=== PATIENT | male | born 1975 | race African-American/Black ===

== ENCOUNTER 2017-06-28 13:21 | Emergency (ER) | payer OTHER ==
[2017-06-28] MEDS ORDERED: IV NORMAL SALINE 1000ML BAG 1,000 ML IV ONE (13:30)
[2017-06-28] MEDS ORDERED: MORPHINE SULFATE 10 MG/ML VIAL. IV ONE (13:30)
[2017-06-28] MEDS ORDERED: ONDANSETRON PF 4 MG/2 ML VIAL. IV ONE (13:30)
[2017-06-28 13:55] LABS: BASO % 1 % (0-3); EOS % 2 % (0-3); HEMATOCRIT 40.1 % (39.0-53.0); HEMOGLOBIN 13.6 g/dL (13.0-17.5); LYMPH # 2.9 x10^3/uL (1.0-4.8); LYMPH % 61 % (24-48); MEAN CORPUSCULAR HEMOGLOBIN 27 pg (25-35); MEAN CORPUSCULAR HGB CONC 34 g/dL (31-37); MEAN CORPUSCULAR VOLUME 81 fL (79-100); MONO % 6 % (0-9); NEUT % 31 % (31-73); PLATELET COUNT 257 x10^3/uL (140-400); RED BLOOD COUNT 4.96 x10^6/uL (4.30-5.70); RED CELL DISTRIBUTION WIDTH 14.5 % (11.5-14.5); WHITE BLOOD COUNT 4.7 x10^3/uL (4.0-11.0)
[2017-06-28] MEDS ORDERED: IOHEXOL 300 MG/ML 75 ML VIAL IV ONE (14:00)
[2017-06-28] MEDS ORDERED: CONTRAST GIVEN MC PRN (14:00)
[2017-06-28 14:07] LABS: CALCIUM 8.9 mg/dL (8.5-10.1); CREATININE 1.1 mg/dL (0.7-1.3); GFR 88.8; POTASSIUM 3.3 mmol/L (3.5-5.1)
[2017-06-28 14:12] LABS: ALBUMIN 4.1 g/dL (3.4-5.0); ALBUMIN/GLOBULIN RATIO 1.1 (1.0-1.7); TOTAL BILIRUBIN 0.2 mg/dL (0.2-1.0); TOTAL PROTEIN 7.9 g/dL (6.4-8.2)
--- NOTE | 2017-06-28 14:29 | EKG ---
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
[2017-06-28] MEDS ORDERED: DIAZ5TAB PO (14:58)
[2017-06-28] MEDS ORDERED: HYDR-971 PO (14:58)
[2017-06-28] MEDS ORDERED: KETOROLAC TROMETHAMINE 30 MG/ML INJ. IV ONE (15:00)
[2017-06-28] MEDS ORDERED: diazePAM 5 MG TABLET PO ONE (15:00)
[2017-06-28 15:04] LABS: % BASOS 1 % (0-3); % EOS 1 % (0-5)
[2017-06-28 15:06] LABS: PLT ESTIMATE ADEQUATE (ADEQUATE); TOXIC GRANULATION PRESENT
[2017-06-28 15:19] VITALS: BP 134/87
== END 2017-06-28 15:30 | disposition home or self-care (01) ==
LOC: ER 13:21
DX: S16.1XXA Strain of muscle, fascia and tendon at neck level, initial encounter (principal); S09.90XA Unspecified injury of head, initial encounter; R10.84 Generalized abdominal pain; R07.89 Other chest pain; M54.5 Low back pain; I10 Essential (primary) hypertension; V46.4XXA Person boarding or alighting a car injured in collision with other nonmotor vehicle, initial encounter; Y93.89 Activity, other specified; Y99.8 Other external cause status; Y92.488 Other paved roadways as the place of occurrence of the external cause
CPT/HCPCS: 36415; 70450; 71260; 72125; 74177; 80053; 83690; 84484; 85007; 85025; 93005; 96361; 96374; 96375; 99285; J1885; J2270; J2405; J7030; Q9967

== ENCOUNTER → 2019-03-07 | Outpatient (CLI) | payer OTHER ==
[~2019-03-07] MED LIST: DIAZ5TAB PO; HYDR-3164 PO; PRED50TA PO
--- NOTE | 2019-03-07 15:34 | EKG ---
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
[2019-03-07 16:13] LABS: CALCIUM 9.1 mg/dL (8.5-10.1); CREATININE 1.1 mg/dL (0.7-1.3); POTASSIUM 3.4 mmol/L (3.5-5.1)
== END | disposition home or self-care (01) ==
LOC: LAB 15:10
PROVIDERS: ATTEND Anesthesiology
DX: I10 Essential (primary) hypertension (principal)
CPT/HCPCS: 36415; 80048; 93005

== ENCOUNTER 2019-04-18 16:03 | Emergency (ER) | payer OTHER ==
[~2019-04-18] VITALS: Ht 182.9 cm; Wt 108.0 kg
[~2019-04-18 16:03] MED LIST changes: -PRED50TA PO
--- NOTE | 2019-04-18 16:43 | PHYS DOC ---
Past Medical History Past Medical History: Hypertension Past Surgical History: No Surgical History Alcohol Use: Occasionally Drug Use: None Adult General Chief Complaint Chief Complaint: ALLERGIC REACTION HPI HPI Patient is a 43 year old male with history of hypertension who presents to the ED today complaining of an allergic reaction. Patient states he had a handful of almonds before coming to the ED. He states he developed a rash on the right upper extremity and felt the food was coming back to his throat. He states he almost vomited. He states symptoms have improved after getting to the ED. Patient denies any difficulty breathing, denies any throat or tongue swelling. Review of Systems Review of Systems Constitutional: Denies fever or chills [] Eyes: Denies change in visual acuity, redness, or eye pain [] HENT: Denies nasal congestion or sore throat [] Respiratory: Denies cough or shortness of breath [] Cardiovascular: No additional information not addressed in HPI [] GI: Denies abdominal pain, nausea, vomiting, bloody stools or diarrhea [] : Denies dysuria or hematuria [] Musculoskeletal: Denies back pain or joint pain [] Integument: Reports allergic reaction rash to the right upper extremity Neurologic: Denies headache, focal weakness or sensory changes [] All other systems were reviewed and found to be within normal limits, except as documented in this note. Current Medications Current Medications Current Medications Medications (Trade) Dose Ordered Sig/Mira Start Time Stop Time Status Last Admin Dose Admin Diphenhydramine HCl (Benadryl) 25 mg 1X ONCE 04/18/19 16:45 04/18/19 16:46 DC 04/18/19 17:04 25 MG Famotidine (Pepcid Vial) 20 mg 1X ONCE 04/18/19 16:45 04/18/19 16:46 DC 04/18/19 17:03 20 MG Methylprednisolone Sodium Succinate (SOLU-Medrol 125MG VIAL) 125 mg 1X ONCE 04/18/19 16:45 04/18/19 16:46 DC 04/18/19 17:03 125 MG Sodium Chloride 1,000 ml @ 1,000 mls/hr 1X ONCE 04/18/19 16:45 04/18/19 17:44 DC 04/18/19 16:59 1,000 MLS/HR Allergies Allergies Allergies Coded Allergies Type Severity Reaction Last Updated Verified No Known Drug Allergies 02/27/15 No Physical Exam Physical Exam Constitutional: Well developed, well nourished, no acute distress, non-toxic appearance. [] HENT: Normocephalic, atraumatic, bilateral external ears normal, oropharynx moist, no oral exudates, nose normal. Airway is open. Eyes: PERRLA, EOMI, conjunctiva normal, no discharge. [] Neck: Normal range of motion, no tenderness, supple, no stridor. [] Cardiovascular:Heart rate regular rhythm, no murmur [] Lungs & Thorax: Bilateral breath sounds clear to auscultation [] Abdomen: Bowel sounds normal, soft, no tenderness, no masses, no pulsatile masses. [] Skin: Warm, dry, right inner biceps with trace amount of nonerythematous rash. Back: No tenderness, no CVA tenderness. [] Extremities: No tenderness, no cyanosis, no clubbing, ROM intact, no edema. [] Neurologic: Alert and oriented X 3, normal motor function, normal sensory function, no focal deficits noted. [] Psychologic: Affect normal, judgement normal, mood normal. [] Current Patient Data Vital Signs Vital Signs Date Time Temp Pulse Resp B/P (MAP) Pulse Ox O2 Delivery O2 Flow Rate FiO2 04/18/19 16:25 98.0 73 14 144/91 (108) 97 Room Air 98.0 EKG EKG [] Radiology/Procedures Radiology/Procedures [] Course & Med Decision Making Course & Med Decision Making Pertinent Labs and Imaging studies reviewed. (See chart for details) This is a 43-year-old male patient who presents to the ED today concerned he could have an allergic reaction to almonds. He had a handful of them prior to coming to the ED, developed a rash on the right biceps, also felt almost the almonds were coming back from the stomach to his throat. He did not vomit. He arrives in the ED with improved symptoms, only trace amount of rash noted to the right biceps. Airway is open. Patient was given IV fluid Pepcid Zofran and Solu-Medrol. Patient has been in the Ed for 2 hours. He has no symptoms. Will be D/c to home with prednisone and Benadryl. Dragon Disclaimer Dragon Disclaimer This electronic medical record was generated, in whole or in part, using a voice recognition dictation system. Departure Departure Impression: Primary Impression: Allergic reaction Disposition: HOME, SELF-CARE Condition: STABLE Referrals: SANAM LEON MD (PCP) Follow up in 1 week Patient Instructions: Food Allergy Additional Instructions: You were evaluated for an allergic reaction to almond allergy. Take the prescribed medications as ordered. Continue taking Benadryl, return to the emergency room at any point symptoms worsen. Scripts Prednisone (PREDNISONE) 50 Mg Tablet 1 TAB PO DAILY, #5 TAB Prov: KONSTANTIN HOWARD APRN 04/18/19 Problem Qualifiers Primary Impression: Allergic reaction Encounter type: initial encounter Qualified Codes: T78.40XA - Allergy, unspecified, initial encounter KONSTANTIN HOWARD APRN Apr 18, 2019 16:43
[2019-04-18] MEDS ORDERED: diphenhydrAMINE 50 MG/ML VIAL IVP ONE (16:45)
[2019-04-18] MEDS ORDERED: IV NORMAL SALINE 1000ML BAG 1,000 ML IV ONE (16:45)
[2019-04-18] MEDS ORDERED: FAMOTIDINE 20 MG/2 ML VIAL IVP ONE (16:45)
[2019-04-18] MEDS ORDERED: methylPREDNISolone SOD SUCC PF 125 MG/2 ML VIAL. IV ONE (16:45)
[2019-04-18] MEDS ORDERED: PRED50TA PO (18:26)
[2019-04-18 18:55] VITALS: BP 136/90
== END 2019-04-18 19:10 | disposition home or self-care (01) ==
LOC: ER 16:03
DX: T78.1XXA Other adverse food reactions, not elsewhere classified, initial encounter (principal); R21 Rash and other nonspecific skin eruption; I10 Essential (primary) hypertension; X58.XXXA Exposure to other specified factors, initial encounter
CPT/HCPCS: 96374; 96375; 99284; J1200; J2930; J3490; J7030